=== PATIENT | female | born 2000 | race Caucasian/White ===

== ENCOUNTER 2024-10-25 13:10 | Emergency (ER) | payer SELFPAY ==
[2024-10-25 13:20] VITALS: BP 115/72
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
[2024-10-25 13:57] VITALS: BMI 24.2
== END 2024-10-25 14:10 | disposition home or self-care (01) ==
LOC: EMR 13:10
PROVIDERS: EMERGENCY PHYSICIAN Emergency Medicine; FAMILY PHYSICIAN Family Medicine
DX: S06.0X0A Concussion without loss of consciousness, initial encounter (principal); M54.50 Low back pain, unspecified; R51.9 Headache, unspecified; V49.40XA Driver injured in collision with unspecified motor vehicles in traffic accident, initial encounter; Y92.410 Unspecified street and highway as the place of occurrence of the external cause; F41.9 Anxiety disorder, unspecified; F32.A Depression, unspecified; K58.9 Irritable bowel syndrome, unspecified; F42.9 Obsessive-compulsive disorder, unspecified
CPT/HCPCS: 99282